=== PATIENT | female | born 1955 | race Caucasian/White ===

== ENCOUNTER 2021-04-04 11:36 | Emergency (ER) | payer OTHER ==
--- OUTSIDE RECORDS SUMMARY | 2021-04-04 11:39 | XMS REPORT | Continuity of Care Document ---
:1955 Author Organization [facility] t Address [address] [place] [address] Care Team Providers Name Role Phone Unavailable Unavailable Unavailable Problems This patient has no known problems. Allergies, Adverse Reactions, Alerts This patient has no known allergies or adverse reactions. Medications Ordered Filled Start Stop Current Ordering Indication Dosage Frequency Signature Comments Components Source Medication Medication Date Date Medication? Clinician (SIG) Name Name ProAir HFA ProAir HFA 2019-0 Yes Carin [address] [facility] [place] [facility] Lisinopril Lisinopril 2019-0 Yes Carin [address] [facility] [place] [facility] Sertraline Sertraline 2019-0 Yes Carin [address] [facility] HCl HCl 5-06 [place] [facility] Nebulizer Nebulizer 2019-0 Yes Carin use with [facility] System System 4-29 [place] Albuterol [facility] - [facility]One 00:00: M [facility] 00 l [facility]ics Albuterol Albuterol 2019-0 Yes Carin [address] [facility] Sulfate Sulfate 4-29 [place] needed [facility]: [facility] 00 [facility] ent Clinics Steglatro Steglatro 2020-0 2020- No Carin [address] [facility] 2-28 06-27 [place] [facility]: [facility]:00 [facility] 00 :00 l [facility] ent [facility] W[facility]math[facility] Wixela Yes Carin TAKE [address] [facility] Inhub Inhub [place] PUFF BY [facility]TH [facility] TWICE A l DAY [facility] Yes Carin INJECT [address] [facility] 70/30 70/30 [place] UNITS [facility] - ReliOn ReliOn SUBCUTANEO [facility] ia USLY EVERY l 12 HOURS Outpati ent Clinics Simvastatin Simvastatin Yes Carin TAKE [address] [facility] [place] TABLET BY [facility] - MOUTH [facility] EVERY DAY l IN THE Outpati EVENING ent Clinics Procedures This patient has no known procedures. Encounters Start End Encounter Admission Attending Care Care Encounter Source Date/Time Date/Time Type Type Clinicians Facility Department ID 2021-02-21 2021-02-21 Out[facility] [id number] [facility] 2021-01-09 2021-01-09 [facility] [id number] [facility] 2020-12-20 2020-12-20 [facility] [id number] [facility] 2020-11-23 2020-11-23 [facility] [id number] [facility] 2020-11-16 2020-11-16 [facility] [id number] [facility] 2020-08-18 2020-08-18 [facility] [id number] [facility] 2020-08-16 2020-08-16 [facility] [id number] [facility] 2020-05-12 2020-05-12 [facility] [id number] [facility] 11[facility] 11:40:00 [facility] Medicine Outpati ent Clinics 2020-04-14 2020-04-14 [facility] [id number] [facility] 11:00[facility]00 11:00:00 t [facility] Medicine Outpati ent Clinics 2020-03-31 2020-03-31 [facility] [id number] [facility] 11:40:00 11:40:00 t [facility] Medicine Outpati ent Clinics 2020-03-02 2020-03-02 [facility] [id number] [facility] 10:20:00 10:20:00 [facility] Medicine Outpati ent Clinics 2020-02-24 2020-02-24 [facility] [id number] [facility] 09:04:00 09:04:00 [facility] Medicine Outpati ent Clinics 2019-12-25 2019-12-25 [facility] [id number] [facility] 11:11:00 11:11:00 t [facility] Medicine Outpati ent Clinics 2019-12-21 2019-12-21 [facility] [id number] [facility] 14:42:00 14:42:00 t [facility] Medicine Outpati ent Clinics 2019-12-10 2019-12-10 [facility] [id number] [facility] 11:40:00 11:40:00 [facility] Medicine Outpati ent Clinics 2019-11-12 2019-11-12 [facility] [id number] [facility] 11:00:00 11:00:00 [facility] Medicine Outpati ent Clinics Results This patient has no known results.
[2021-04-04] MEDS ORDERED: predniSONE 20 MG TAB ONE (12:39)
[2021-04-04] MEDS ORDERED: LEVALBUTEROL 1.25 MG/3 ML NEB ONE (12:40)
[2021-04-04] MEDS ORDERED: IPRATROPIUM BROM 0.5MG/2.5ML ONE (12:40)
[2021-04-04 12:47] LABS: Absolute Lymphocytes (CBC) 1.3 K/uL (0.7-4.9); Hematocrit 44.1 % (36.0-45.0); Lymphocytes % 16.6 % (15.3-44.8); MPV 9.2 fL (7.6-11.3); RBC Red Blood Cell Count 5.17 M/uL (3.86-4.86)
[2021-04-04 12:52] LABS: Protime INR 0.96
[2021-04-04 13:07] LABS: ALT/SGPT 31 U/L (12-78); AST/SGOT 18 U/L (15-37); Albumin 3.4 g/dL (3.4-5.0); Alkaline Phosphatase 70 U/L (45-117); BUN Blood Urea Nitrogen 16 mg/dL (7-18); Bicarbonate 22 mmol/L (21-32); Bilirubin Direct < 0.1 mg/dL (0-0.2); Bilirubin Total 0.3 mg/dL (0.2-1.0); Glucose Level 93 mg/dL (74-106); Magnesium 2.3 mg/dL (1.8-2.4); NT PRO-BNP 41 pg/mL (<125); Potassium 4.7 mmol/L (3.5-5.1); Protein, Total 7.2 g/dL (6.4-8.2); Sodium Level 140 mmol/L (136-145); Troponin (Emerg Dept Use Only) < 0.02 ng/mL (0.0-0.045)
--- NOTE | 2021-04-04 13:39 | RAD REPORT ---
EXAM DESCRIPTION: Alycia Single View04/04/2021 1:04 pm CLINICAL HISTORY: Shortness of breath COMPARISON: 2014 FINDINGS: The lungs appear clear of acute infiltrate. The heart is normal size IMPRESSION: No acute abnormalities displayed
[2021-04-04] MEDS ORDERED: CEFTRIAXONE/SWI 1gm 1 GM/10 ML SYR ONE (14:16)
[2021-04-04] MEDS ORDERED: AZITHROMYCIN 250 MG TAB ONE (14:16)
--- NOTE | 2021-04-04 14:20 | ER ---
Nurse's Notes [facility] Name: aRfal Ríos Age: 65 yrs Sex: Female : 1955 Arrival Date: 04/04/2021 Time: 11:38 Bed 27 Private MD: Carin Lenz Diagnosis: Chronic obstructive pulmonary disease with (acute) exacerbation Presentation: 04/04 11:45 Chief complaint: Patient states: Sinus congestion, runny nose, cough, congestion, ph diarrhea, SOB at rest, and low grade fever > 1 week. Denies abdominal pain N/V. Coronavirus screen: congestion, cough unrelated to allergies, diarrhea, fever, runny nose, shortness of breath, Client presents with at least one sign or symptom that may indicate coronavirus-19. Standard/surgical mask placed on the client. Ebola Screen: No symptoms or risks identified at this time. Initial Sepsis Screen: Does the patient meet any 2 criteria? No. Patient's initial sepsis screen is negative. Does the patient have a suspected source of infection? Yes: Productive cough/pneumonia. Risk Assessment: Do you want to hurt yourself or someone else? Patient reports no desire to harm self or others. Onset of symptoms was April 04, 2021. 11:45 Method Of Arrival: Ambulatory 11:45 Acuity: KRISTIN 3 ph Triage Assessment: 12:14 Respiratory: the patient has mild shortness of breath. ap3 Historical: - Allergies: 11:50 No Known Allergies; ph - PMHx: 11:50 Diabetes - IDDM; COPD; ph - PSHx: 11:50 Hysterectomy; ph - Immunization history:: Client reports receiving the 2nd dose of the Covid vaccine. - Social history:: Smoking status: Patient/guardian denies using tobacco, the patient reports quitting approximately 10 years ago. Screenin:13 Abuse screen: Denies threats or abuse. Nutritional screening: No deficits noted. ap3 Tuberculosis screening: No symptoms or risk factors identified. Fall Risk None identified. Assessment: 12:12 General: Appears in no apparent distress. comfortable, Behavior is calm, cooperative, ap3 appropriate for age. Pain: Denies pain. Neuro: Level of Consciousness is awake, alert, obeys commands, Oriented to person, place, time, situation. Cardiovascular: Capillary refill < 3 seconds. Respiratory: Airway is patent Respiratory effort is even, unlabored, Respiratory pattern is regular, symmetrical, Breath sounds with wheezes in right posterior upper lobe and right posterior middle lobe Onset: The symptoms/episode began/occurred 2 weeks ago. patient has chronic COPD. GI: Reports diarrhea. : No signs and/or symptoms were reported regarding the genitourinary system. EENT: No signs and/or symptoms were reported regarding the EENT system. Derm: No signs and/or symptoms reported regarding the dermatologic system. 14:46 Cardiovascular: Rhythm is regular. ap3 Vital Signs: 11:45 BP 151 / 71; Pulse 76; Resp 20; Temp 98.1; Pulse Ox 97% on R/A; Weight 122.47 kg; ph Height 5 ft. 6 in. (167.64 cm); 12:14 BP 136 / 84; Pulse 70; Resp 17; Pulse Ox 97% on R/A; ap3 12:56 BP 123 / 52; Pulse 75; Resp 15 S; Pulse Ox 100% on R/A; ca1 13:26 BP 124 / 66; Pulse 74; Resp 11; Pulse Ox 96% on R/A; ap3 14:09 BP 114 / 63; Pulse 75; Resp 15; Pulse Ox 96% on R/A; ap3 11:45 Body Mass Index 43.58 (122.47 kg, 167.64 cm) ph ED Course: 11:38 Patient arrived in ED. am2 11:38 Carin Lenz FNP-C is Private Physician. am2 11:49 Triage completed. ph 11:49 Arm band placed on Patient placed in an exam room. ph 11:54 Cb Leigh NP is PHCP. pm1 11:54 Eliseo May MD is Attending Physician. pm1 12:04 Kenia Trevino, LEON is Primary Nurse. ap3 12:14 Patient has correct armband on for positive identification. Placed in gown. Bed in low ap3 position. Side rails up X 1. Adult w/ patient. nuclear equipment operator on. Pulse ox on. NIBP on. Door closed. Noise minimized. Warm blanket given. 12:20 Inserted saline lock: 20 gauge in left antecubital area, using aseptic technique. Blood ap3 collected. 13:04 XRAY Chest (1 view) In Process Unspecified. EDMS 14:46 No provider procedures requiring assistance completed. Patient did not have IV access ap3 during this emergency room visit. intact, bleeding controlled, No redness/swelling at site. Pressure dressing applied. Administered Medications: 12:41 Drug: predniSONE 60 mg Route: PO; ap3 14:02 Follow up: Response: No adverse reaction ap3 12:41 Drug: Xopenex (levalbuterol) 1.25 mg Route: Inhalation; ap3 12:41 Drug: AtroVENT (ipratropium) Aerosol 0.5 mg Route: Inhalation; ap3 14:01 Drug: Rocephin (cefTRIAXone) 1 grams Route: IV; Rate: calculated rate; Site: left ap3 antecubital; 14:48 Follow up: Response: No adverse reaction; IV Status: Completed infusion ap3 14:01 Drug: AZITHromycin 500 mg Route: PO; ap3 14:48 Follow up: Response: No adverse reaction ap3 Outcome: 14:20 Discharge ordered by MD. pm1 14:46 Discharged to home ambulatory. ap3 14:46 Condition: good 14:46 Discharge instructions given to patient, Instructed on discharge instructions, follow up and referral plans. no drinking with medication, Demonstrated understanding of instructions, follow-up care, medications, Prescriptions given X 3. 14:47 Patient left the ED. ap3 Signatures: Dispatcher [employer] EDAna Garcia RN RN ph Marinas, Patrick, LIO ANTENNA INSTALLER pm1 Kenia King am2 Kenia Trevino RN RN ap3 Laura Montes RN RN ca1
--- NOTE | 2021-04-04 14:20 | EDPHYS ---
Physician Documentation [facility] Name: Rafal Ríos Age: 65 yrs Sex: Female : 1955 Arrival Date: 04/04/2021 Time: 11:38 Bed 27 Private MD: Carin Lenz ED Physician Eliseo May HPI: 04/04 12:29 This 65 yrs old Female presents to ER via Ambulatory with complaints of pm1 Breathing Difficulty, Chest Congestion. 12:29 The patient has shortness of breath at rest. Onset: The symptoms/episode began/occurred pm1 1 week(s) ago. Duration: The symptoms are continuous. The patient's shortness of breath is aggravated by nothing, is alleviated by nebulizer treatment. Associated signs and symptoms: Pertinent positives: productive cough, runny nose, Pertinent negatives: chest pain, fever. Severity of symptoms: in the emergency department the symptoms are worse. The patient has experienced similar episodes in the past, a few times. The patient has not recently seen a physician. . Historical: - Allergies: 11:50 No Known Allergies; ph - PMHx: 11:50 Diabetes - IDDM; COPD; ph - PSHx: 11:50 Hysterectomy; ph - Immunization history:: Client reports receiving the 2nd dose of the Covid vaccine. - Social history:: Smoking status: Patient/guardian denies using tobacco, the patient reports quitting approximately 10 years ago. ROS: 12:29 Constitutional: Negative for fever, chills, and weight loss, Eyes: Negative for injury, pm1 pain, redness, and discharge. 12:29 Neck: Negative for injury, pain, and swelling, Cardiovascular: Negative for chest pain, palpitations, and edema. 12:29 Back: Negative for injury and pain, MS/Extremity: Negative for injury and deformity, Skin: Negative for injury, rash, and discoloration, Neuro: Negative for headache, weakness, numbness, tingling, and seizure. 12:29 ENT: Positive for rhinorrhea, sinus congestion, Negative for drainage from ear(s), ear pain, sore throat. 12:29 Respiratory: Positive for cough, with yellow sputum, shortness of breath. 12:29 Abdomen/GI: Positive for diarrhea, Negative for abdominal pain, nausea and vomiting. Exam: 12:29 Constitutional: This is a well developed, well nourished patient who is awake, alert, pm1 and in no acute distress. Head/Face: Normocephalic, atraumatic. 12:29 Back: No spinal tenderness. No costovertebral tenderness. Full range of motion. Skin: Warm, dry with normal turgor. Normal color with no rashes, no lesions, and no evidence of cellulitis. MS/ Extremity: Pulses equal, no cyanosis. Neurovascular intact. Full, normal range of motion. 12:29 Eyes: Periorbital structures: appear normal, Extraocular movements: no acute changes, Conjunctiva: normal. 12:29 ENT: Nose: no acute changes, Mouth: Lips: normal, Oral mucosa: normal, pink and intact, moist. 12:29 Chest/axilla: Inspection: normal, Palpation: is normal. 12:29 Cardiovascular: Rate: normal, Rhythm: regular, Pulses: no pulse deficits are appreciated, Edema: is not appreciated. 12:29 Respiratory: Exam negative for acute changes, respiratory distress, shortness of breath, Breath sounds: wheezing: that is mild, is heard diffusely. 12:29 Abdomen/GI: Inspection: abdomen appears normal, Palpation: abdomen is soft and non-tender, in all quadrants. 12:29 Neuro: Exam negative for acute changes, Orientation: is normal, Mentation: is normal, Motor: is normal, moves all fours, Gait: is steady, at a normal pace, without difficulty. Vital Signs: 11:45 BP 151 / 71; Pulse 76; Resp 20; Temp 98.1; Pulse Ox 97% on R/A; Weight 122.47 kg; ph Height 5 ft. 6 in. (167.64 cm); 12:14 BP 136 / 84; Pulse 70; Resp 17; Pulse Ox 97% on R/A; ap3 12:56 BP 123 / 52; Pulse 75; Resp 15 S; Pulse Ox 100% on R/A; ca1 13:26 BP 124 / 66; Pulse 74; Resp 11; Pulse Ox 96% on R/A; ap3 14:09 BP 114 / 63; Pulse 75; Resp 15; Pulse Ox 96% on R/A; ap3 11:45 Body Mass Index 43.58 (122.47 kg, 167.64 cm) ph MDM: 12:13 Patient medically screened. pm1 14:19 Data reviewed: vital signs. Data interpreted: Pulse oximetry: on room air is 96 %. pm1 Interpretation: normal. Counseling: I had a detailed discussion with the patient and/or guardian regarding: the historical points, exam findings, and any diagnostic results supporting the discharge/admit diagnosis, lab results, radiology results, the need for outpatient follow up, to return to the emergency department if symptoms worsen or persist or if there are any questions or concerns that arise at home. 14:22 ED course: VISUAL BASIC PROGRAMMER aware reviewed. No information found. pm1 08 12:13 Order name: Basic Metabolic Panel pm1 04/04 12:13 Order name: CBC with Diff pm1 04/04 12:13 Order name: LFT's; Complete Time: 13:27 pm1 04/04 12:13 Order name: Magnesium; Complete Time: 13:27 pm1 04/04 12:13 Order name: NT PRO-BNP; Complete Time: 13:27 pm1 04/04 12:13 Order name: PT-INR; Complete Time: 13:27 pm1 04/04 12:13 Order name: Troponin (emerg Dept Use Only); Complete Time: 13:27 pm1 04/04 12:13 Order name: XRAY Chest (1 view); Complete Time: 13:46 pm1 04/04 12:14 Order name: Basic Metabolic Panel; Complete Time: 13:27 EDMS 04/04 12:14 Order name: CBC with Automated Diff; Complete Time: 13:27 EDMS 08 12:13 Order name: EKG; Complete Time: 12:14 pm1 04/04 12:13 Order name: Cardiac monitoring; Complete Time: 12:35 pm1 04/04 12:13 Order name: EKG - Nurse/Tech; Complete Time: 12:42 pm1 04/04 12:13 Order name: IV Saline Lock; Complete Time: 12:35 pm1 04/04 12:13 Order name: Labs collected and sent; Complete Time: 12:35 pm1 04/04 12:13 Order name: O2 Per Protocol; Complete Time: 12:16 pm1 08 12:13 Order name: O2 Sat Monitoring; Complete Time: 12:16 pm1 Administered Medications: 12:41 Drug: predniSONE 60 mg Route: PO; ap3 14:02 Follow up: Response: No adverse reaction ap3 12:41 Drug: Xopenex (levalbuterol) 1.25 mg Route: Inhalation; ap3 12:41 Drug: AtroVENT (ipratropium) Aerosol 0.5 mg Route: Inhalation; ap3 14:01 Drug: Rocephin (cefTRIAXone) 1 grams Route: IV; Rate: calculated rate; Site: left ap3 antecubital; 14:48 Follow up: Response: No adverse reaction; IV Status: Completed infusion ap3 14:01 Drug: AZITHromycin 500 mg Route: PO; ap3 14:48 Follow up: Response: No adverse reaction ap3 Disposition: 17:31 Co-signature as Attending Physician, Eliseo May MD. rn Disposition: 04/04/21 14:20 Discharged to Home. Impression: Chronic obstructive pulmonary disease with (acute) exacerbation. - Condition is Stable. - Discharge Instructions: Chronic Obstructive Pulmonary Disease Exacerbation. - Prescriptions for Prednisone 20 mg Oral Tablet - take 3 tablet by ORAL route once daily for 5 days; 15 tablet. Zithromax Z- Abdirizak 250 mg Oral Tablet - take 1 tablet by ORAL route as directed for 5 days Day 1 - take two (2) tablets one time. Day 2, 3, 4 , 5 take one (1) tablet once daily.; 6 tablet. Guaifenesin AC 10- 100 mg/5 mL Oral Liquid - take 10 milliliter by ORAL route every 4 hours As needed; 240 milliliter. - Medication Reconciliation Form, Thank You Letter, Antibiotic Education, Prescription Opioid Use form. - Follow up: Emergency Department; When: As needed; Reason: Worsening of condition. Follow up: Private Physician; When: 2 - 3 days; Reason: Recheck today's complaints, Continuance of care, Re-evaluation by your physician. - Problem is new. - Symptoms have improved. Signatures: Dispatcher [employer] EDMS Eliseo May MD MD rn Hall, Patricia, RN RN ph Marinas, Patrick, LIO MACHINE PRINTER HOSE pm1 Kenia Trevino RN RN ap3 Corrections: (The following items were deleted from the chart) 14:47 14:20 04/04/2021 14:20 Discharged to Home. Impression: Chronic obstructive pulmonary ap3 disease with (acute) exacerbation. Condition is Stable. Forms are Medication Reconciliation Form, Thank You Letter, Antibiotic Education, Prescription Opioid Use. Follow up: Emergency Department; When: As needed; Reason: Worsening of condition. Follow up: Private Physician; When: 2 - 3 days; Reason: Recheck today's complaints, Continuance of care, Re-evaluation by your physician. Problem is new. Symptoms have improved. pm1
[2021-04-04 15:36] VITALS: O2SAT 96
[2021-04-04 15:37] VITALS: BP 114/63
[2021-04-04 15:47] VITALS: TEMP 98.1
--- NOTE | 2021-04-05 07:27 | EKG ---
Test Date: 2021-04-04 Test Time: 12:35:46 Web Production Designer: HEIDE MEASUREMENT RESULTS: Intervals: Rate: 66 AR: 150 QRSD: 82 QT: 444 QTc: 465 [place]: P: 45 AR: 150 QRS: 103 T: 72 INTERPRETIVE STATEMENTS: Normal sinus rhythm Possible Right ventricular hypertrophy Abnormal ECG Compared to ECG 02/16/2015 07:43:39 T-wave abnormality no longer present Electronically Signed On 04-05-21 07:26:29 CDT by Michael Costa
== END 2021-04-04 14:47 | disposition home or self-care (01) ==
LOC: ER 11:36
DX: J44.1 Chronic obstructive pulmonary disease with (acute) exacerbation (principal); E11.9 Type 2 diabetes mellitus without complications
CPT/HCPCS: 96365; 93005; 85025; 80048; 36415; 83735; 85610; 80076; 84484; 83880; 71045; 99285; J7512; J0696